=== PATIENT | female | born 1950 | race Caucasian/White ===

== ENCOUNTER 2018-02-04 13:22 | Inpatient (IN) | payer OTHER ==
[2018-02-04] MEDS: ONDANSETRON 4 MG INJ IV (13:38)
[2018-02-04] MEDS: morphine 4 MG/ML VIAL IV (13:38)
[2018-02-04] MEDS: SOD CHLORIDE 0.9% 1,000 ML IV ×3 (13:38→19:55)
[2018-02-04 13:44] LABS: ADD MAN DIFF? NO
[2018-02-04 13:48] LABS: ABNORMAL IP MESSAGE 1; BASOPHIL # 0.1 10^3/ul (0.0-0.1); BASOPHILS % 0.5 % (0.0-2.0); HEMATOCRIT 45.6 % (37.0-47.0); HEMOGLOBIN 15.5 g/dl (12.0-16.0); LYMPHOCYTES % 9.1 % (15.0-51.0); MEAN CORPUSCULAR HEMOGLOBIN 30.2 pg (29.0-33.0); MEAN CORPUSCULAR VOLUME 88.9 fl (82.0-101.0); MEAN PLATELET VOLUME 9.7 fl (7.4-10.4); MONOCYTE # 1.7 10^3/ul (0.3-0.9); MONOCYTES % 7.8 % (0.0-11.0); NEUTROPHIL # 17.8 10^3/ul (1.6-7.5); NEUTROPHILS % 81.8 % (39.0-77.0); PLATELET COUNT 280 10^3/UL (140-415); RED BLOOD COUNT 5.13 10^6/ul (4.20-5.40); RED CELL DISTRIBUTION WIDTH 12.9 % (11.5-14.5)
[2018-02-04 13:48] LABS: WHITE BLOOD COUNT 21.8 10^3/ul (4.8-10.8)
[2018-02-04 13:55] LABS: POSITIVE DIFF @See below
[2018-02-04] MEDS: LIDOCAINE/MYLANTA 40 ML BTL PO (14:01)
[2018-02-04 14:08] LABS: ALANINE AMINOTRANSFERASE 12 IU/L (13-69); ALBUMIN 4.8 g/dl (3.3-4.9); ALBUMIN/GLOBULIN RATIO 1.54; ALKALINE PHOSPHATASE 65 IU/L (42-121); ANION GAP 34 (8-16); BILIRUBIN,INDIRECT 0.6 mg/dl (0-1.1); BILIRUBIN,TOTAL 0.6 mg/dl (0.2-1.3); BLOOD UREA NITROGEN 29 mg/dl (7-20); CALCIUM 10.1 mg/dl (8.4-10.2); CARBON DIOXIDE 16 mmol/L (21-31); CHLORIDE 94 mmol/L (97-110); CREATININE 1.11 mg/dl (0.44-1.00); LIPASE 67 U/L (23-300); POTASSIUM 4.6 mmol/L (3.5-5.1); SODIUM 139 mmol/L (135-144); TOTAL PROTEIN 7.9 g/dl (6.1-8.1)
[2018-02-04 14:12] LABS: GLUCOSE 579 mg/dl (70-220)
[2018-02-04 14:16] LABS: ASPARTATE AMINO TRANSFERASE 38 IU/L (15-46)
[2018-02-04 14:18] LABS: LACTIC ACID 16.6 mmol/L (0.5-2.0)
[2018-02-04 14:19] LABS: TROPONIN-I 0.059 ng/ml (0.000-0.120)
[2018-02-04 15:13] LABS: ADD UMIC YES; UR ASCORBIC ACID NEGATIVE (NEGATIVE); UR BILIRUBIN (Dip) NEGATIVE (NEGATIVE); UR BLOOD (Dip) 1+ mg/dL (NEGATIVE); UR CLARITY CLEAR (CLEAR); UR COLOR STRAW (YELLOW); UR GLUCOSE (Dip) 3+ mg/dL (NEGATIVE); UR KETONES (Dip) 1+ mg/dL (NEGATIVE); UR LEUKOCYTE ESTERASE (Dip) NEGATIVE Leu/ul (NEGATIVE); UR NITRITE (Dip) NEGATIVE (NEGATIVE); UR RBC 0 /HPF (0-5); UR SPECIFIC GRAVITY (Dip) 1.021 (1.003-1.030); UR TOTAL PROTEIN (Dip) NEGATIVE (NEGATIVE); UR UROBILINOGEN (Dip) NEGATIVE (NEGATIVE); UR WBC 0 /HPF (0-5)
[2018-02-04] MEDS ORDERED: SODIUM CHLORIDE 23.4% 77 MEQ, POTASSIUM CHLORIDE 30 MEQ in DEXTROSE 10% 1,000 ML IV ×2 (16:26→17:30)
[2018-02-04] MEDS ORDERED: SODIUM CHLORIDE 23.4% 77 MEQ in DEXTROSE 10% 1,000 ML IV ×2 (16:26→17:30)
[2018-02-04] MEDS ORDERED: POTASSIUM CHLORIDE 40 MEQ in SOD CHLORIDE 0.9% 1,000 ML IV ×2 (16:26→17:30)
[2018-02-04] MEDS ORDERED: SOD CHLORIDE 0.9% 1,000 ML IV ×2 (16:26→17:30)
[2018-02-04] MEDS ORDERED: DEXTROSE 50% 50 ML SYRINGE IV ×4 (16:30→17:30)
[2018-02-04] MEDS: LACTATED RINGER'S 550 ML IV (16:37)
[2018-02-04 17:05] LABS: AADO2 Venous 71.4 mmHg; MODE ROOM AIR; MetHgb Venous 0.3 %; Sample Type Blood venous; Site OTHER; Venous COHb 0.4 %; Venous Fraction OxyHgb 82.9 %; Venous Oxygen Sat 83.5 mmHG (55.0-75.0); Venous Total Hemglobin 15.6 g/dl
[2018-02-04] MEDS: INSULIN REGULAR, HUMAN 100 UNIT in SOD CHLORIDE 0.9% 100 ML IV (17:19)
[2018-02-04] MEDS: ACCU-CHEK XX ×7 (17:30→23:30)
[2018-02-04] MEDS ORDERED: POTASSIUM CHLORIDE 30 MEQ in SOD CHLORIDE 0.9% 1,000 ML IV (17:30)
[2018-02-04] MEDS ORDERED: SODIUM CHLORIDE 23.4% 77 MEQ, POTASSIUM CHLORIDE 40 MEQ in DEXTROSE 10% 1,000 ML IV (17:30)
[2018-02-04] MEDS ORDERED: POTASSIUM CHLORIDE 50 ML IVPB (17:30)
[2018-02-04] MEDS ORDERED: INSULIN REGULAR, HUMAN 100 UNIT in SOD CHLORIDE 0.9% 100 ML IV (17:30)
[2018-02-04 17:31] LABS: HEMOGLOBIN A1C 9.8 % (0-5.9)
[2018-02-04] MEDS: CEFEPIME 2GM/50 ML (PMX) 50 ML IVPB (17:36)
[2018-02-04] MEDS: POTASSIUM CHLORIDE 30 MEQ in SOD CHLORIDE 0.9% 1,000 ML IV (17:38)
[2018-02-04 17:54] LABS: ANION GAP 32 (8-16); BLOOD UREA NITROGEN 27 mg/dl (7-20); CALCIUM 9.7 mg/dl (8.4-10.2); CARBON DIOXIDE 16 mmol/L (21-31); CHLORIDE 95 mmol/L (97-110); CREATININE 1.02 mg/dl (0.44-1.00); MAGNESIUM 1.8 mg/dl (1.7-2.5); PHOSPHORUS 4.5 mg/dl (2.5-4.9); POTASSIUM 4.7 mmol/L (3.5-5.1); SODIUM 138 mmol/L (135-144)
[2018-02-04 17:56] LABS: GLUCOSE 571 mg/dl (70-220)
[2018-02-04] MEDS ORDERED: NACL 0.9% 3 ML SYG IV (18:00)
[2018-02-04] MEDS ORDERED: ACETAMINOPHEN 325 MG TAB PO (18:00)
[2018-02-04] MEDS ORDERED: HYDROCODONE/APAP (5/325) TAB PO (18:00)
[2018-02-04 18:22] LABS: LACTIC ACID 14.8 mmol/L (0.5-2.0)
[2018-02-04] MEDS: SODIUM CHLORIDE 23.4% 77 MEQ, POTASSIUM CHLORIDE 40 MEQ in DEXTROSE 10% 1,000 ML IV (18:30)
[2018-02-04] MEDS: PIPER-TAZO 3.375 GM IV (PMX) 100 ML IVPB (19:09)
[2018-02-04] MEDS: PANTOPRAZOLE 40 MG INJ IV (19:10)
[2018-02-04 20:11] LABS: ANION GAP 27 (8-16); BLOOD UREA NITROGEN 24 mg/dl (7-20); CARBON DIOXIDE 16 mmol/L (21-31); CHLORIDE 104 mmol/L (97-110); GLUCOSE 323 mg/dl (70-220); MAGNESIUM 1.7 mg/dl (1.7-2.5); POTASSIUM 4.8 mmol/L (3.5-5.1); SODIUM 142 mmol/L (135-144)
[2018-02-04 20:23] LABS: LACTIC ACID 14.4 mmol/L (0.5-2.0)
[2018-02-04 20:49] LABS: MODE ROOM AIR; MetHgb Venous 0.4 %; Sample Type Blood venous; Site VENOUS LINE; Venous COHb 0.3 %; Venous Fraction OxyHgb 74.4 %; Venous Oxygen Sat 74.9 mmHG (55.0-75.0)
[2018-02-04] MEDS: ATORVASTATIN 20 MG TAB PO (20:58)
[2018-02-04] MEDS: traZODone 100 MG TAB PO (20:58)
[2018-02-04] MEDS: LABETALOL HCL 20MG INJ IV (20:59)
[2018-02-04] MEDS: METOPROLOL 25 MG TAB PO (21:00)
[2018-02-05] MEDS: ACCU-CHEK XX ×7 (00:30→06:17)
[2018-02-05 00:31] LABS: MODE ROOM AIR; MetHgb Venous 0.2 %; Sample Type Blood venous; Site VENOUS LINE; Venous COHb 0.4 %; Venous Fraction OxyHgb 88.1 %; Venous Oxygen Sat 88.6 mmHG (55.0-75.0); Venous Total Hemglobin 14.6 g/dl
[2018-02-05 00:39] LABS: ANION GAP 15 (8-16); BLOOD UREA NITROGEN 18 mg/dl (7-20); CALCIUM 8.6 mg/dl (8.4-10.2); CARBON DIOXIDE 25 mmol/L (21-31); CHLORIDE 106 mmol/L (97-110); CREATININE 0.77 mg/dl (0.44-1.00); GLUCOSE 289 mg/dl (70-220); MAGNESIUM 1.8 mg/dl (1.7-2.5); PHOSPHORUS 1.1 mg/dl (2.5-4.9); POTASSIUM 4.4 mmol/L (3.5-5.1); SODIUM 142 mmol/L (135-144)
[2018-02-05] MEDS: INSULIN GLARGINE [LANTus] (100 UNITS/ML) SYG SC ×3 (01:30→21:43)
[2018-02-05] MEDS: PIPER-TAZO 3.375 GM IV (PMX) 100 ML IVPB ×4 (02:28→18:12)
[2018-02-05 04:37] LABS: MODE ROOM AIR; MetHgb Venous 0.3 %; Sample Type Blood venous; Site VENOUS LINE; Venous COHb 0.9 %; Venous Fraction OxyHgb 73.2 %; Venous Oxygen Sat 74.1 mmHG (55.0-75.0); Venous Total Hemglobin 14.8 g/dl
[2018-02-05 05:01] LABS: ALANINE AMINOTRANSFERASE 19 IU/L (13-69); ALBUMIN 3.6 g/dl (3.3-4.9); ALKALINE PHOSPHATASE 45 IU/L (42-121); ANION GAP 13 (8-16); ASPARTATE AMINO TRANSFERASE 47 IU/L (15-46); BILIRUBIN,INDIRECT 0.7 mg/dl (0-1.1); BILIRUBIN,TOTAL 0.7 mg/dl (0.2-1.3); BLOOD UREA NITROGEN 15 mg/dl (7-20); CALCIUM 8.4 mg/dl (8.4-10.2); CARBON DIOXIDE 24 mmol/L (21-31); CHLORIDE 108 mmol/L (97-110); CREATININE 0.69 mg/dl (0.44-1.00); GLUCOSE 279 mg/dl (70-220); MAGNESIUM 1.8 mg/dl (1.7-2.5); PHOSPHORUS 1.2 mg/dl (2.5-4.9); POTASSIUM 4.3 mmol/L (3.5-5.1); SODIUM 141 mmol/L (135-144); TOTAL PROTEIN 6.4 g/dl (6.1-8.1)
[2018-02-05 05:45] LABS: THYROID STIMULATING HORMONE 0.286 MIU/L (0.465-4.680)
[2018-02-05] MEDS: PANTOPRAZOLE 40 MG INJ IV ×2 (06:11→18:12)
[2018-02-05 06:23] LABS: WHITE BLOOD COUNT 20.8 10^3/ul (4.8-10.8)
[2018-02-05 06:23] LABS: ABNORMAL IP MESSAGE 1; ADD MAN DIFF? NO; BASOPHIL # 0.1 10^3/ul (0.0-0.1); BASOPHILS % 0.2 % (0.0-2.0); HEMATOCRIT 43.1 % (37.0-47.0); HEMOGLOBIN 14.2 g/dl (12.0-16.0); LYMPHOCYTES # 2.3 10^3/ul (0.8-2.9); LYMPHOCYTES % 11.1 % (15.0-51.0); MEAN CORPUSCULAR HEMOGLOBIN 29.9 pg (29.0-33.0); MEAN CORPUSCULAR HGB CONC 32.9 g/dl (32.0-37.0); MEAN CORPUSCULAR VOLUME 90.7 fl (82.0-101.0); MEAN PLATELET VOLUME 9.7 fl (7.4-10.4); MONOCYTES % 9.7 % (0.0-11.0); NEUTROPHIL # 16.3 10^3/ul (1.6-7.5); NEUTROPHILS % 78.3 % (39.0-77.0); PLATELET COUNT 222 10^3/UL (140-415); RED BLOOD COUNT 4.75 10^6/ul (4.20-5.40); RED CELL DISTRIBUTION WIDTH 13.4 % (11.5-14.5)
[2018-02-05 06:35] LABS: POSITIVE DIFF @See below
[2018-02-05] MEDS: ONDANSETRON 4 MG INJ IV ×3 (06:50→21:26)
[2018-02-05 07:57] LABS: HEMOGLOBIN A1C 10.1 % (0-5.9)
[2018-02-05 08:50] LABS: MODE NASAL CANNULA; MetHgb Venous 0.2 %; Sample Type Blood venous; Site VENOUS LINE; Venous COHb 0.4 %; Venous Fraction OxyHgb 85.4 %; Venous Oxygen Sat 85.9 mmHG (55.0-75.0); Venous Total Hemglobin 14.1 g/dl
[2018-02-05 09:44] LABS: ANION GAP 14 (8-16); BLOOD UREA NITROGEN 11 mg/dl (7-20); CALCIUM 8.4 mg/dl (8.4-10.2); CARBON DIOXIDE 24 mmol/L (21-31); CHLORIDE 105 mmol/L (97-110); CREATININE 0.64 mg/dl (0.44-1.00); GLUCOSE 224 mg/dl (70-220); MAGNESIUM 1.7 mg/dl (1.7-2.5); PHOSPHORUS 1.5 mg/dl (2.5-4.9); POTASSIUM 4.1 mmol/L (3.5-5.1); SODIUM 139 mmol/L (135-144)
[2018-02-05] MEDS ORDERED: GLUCOSE GEL 15 GRAM TUBE PO ×2 (10:00)
[2018-02-05] MEDS ORDERED: GLUCOSE GEL 15 GRAM TUBE BUCCAL (10:00)
[2018-02-05] MEDS ORDERED: GLUCAGON 1 MG INJ IM (10:00)
[2018-02-05] MEDS ORDERED: DEXTROSE 50% 50 ML SYRINGE IV ×2 (10:00)
[2018-02-05] MEDS: morphine 2 MG INJ IV ×3 (10:53→21:27)
[2018-02-05] MEDS: LISINOPRIL 20 MG TAB PO (11:18)
[2018-02-05] MEDS: LEVOTHYROXINE 100 MCG TAB PO (11:19)
[2018-02-05] MEDS: VENLAFAXINE (XR) 75 MG CAP PO (11:27)
[2018-02-05 11:47] LABS: LACTIC ACID 4.5 mmol/L (0.5-2.0)
[2018-02-05] MEDS: SOD CHLORIDE 0.45% 1,000 ML IV ×3 (12:21→22:47)
[2018-02-05] MEDS: METOPROLOL 25 MG TAB PO ×2 (12:26→21:28)
[2018-02-05] MEDS: LABETALOL HCL 20MG INJ IV ×2 (12:43→23:51)
[2018-02-05] MEDS: INSULIN ASPART [NOVOLOG] 3 ML PEN SC ×4 (12:47→21:43)
[2018-02-05] MEDS: BISACODYL (EC) 5 MG TAB PO (16:05)
[2018-02-05] MEDS: MAGNESIUM CITRATE 300 ML BTL PO ×3 (18:12→22:21)
[2018-02-05] MEDS ORDERED: INSULIN GLARGINE [LANTus] (100 UNITS/ML) SYG SC (20:00)
[2018-02-05] MEDS: POLYETHYLENE GLYCOL 3350 119 GM POWDER PO (21:26)
[2018-02-05] MEDS: ATORVASTATIN 20 MG TAB PO (21:27)
[2018-02-05] MEDS: traZODone 100 MG TAB PO (21:27)
[2018-02-06] MEDS: PIPER-TAZO 3.375 GM IV (PMX) 100 ML IVPB ×4 (00:40→17:57)
[2018-02-06] MEDS: INSULIN ASPART [NOVOLOG] 3 ML PEN SC ×6 (00:56→21:49)
[2018-02-06] MEDS: ACCU-CHEK XX (02:01)
[2018-02-06] MEDS: LABETALOL HCL 20MG INJ IV (03:59)
[2018-02-06] MEDS: PANTOPRAZOLE 40 MG INJ IV ×2 (05:42→17:57)
[2018-02-06] MEDS: ONDANSETRON 4 MG INJ IV (05:42)
[2018-02-06] MEDS: SOD CHLORIDE 0.45% 1,000 ML IV ×3 (05:42→18:12)
[2018-02-06] MEDS: POLYETHYLENE GLYCOL 3350 119 GM POWDER PO (06:38)
[2018-02-06 06:41] LABS: ADD MAN DIFF? NO
[2018-02-06 06:55] LABS: WHITE BLOOD COUNT 17.3 10^3/ul (4.8-10.8)
[2018-02-06 06:55] LABS: BASOPHILS % 0.2 % (0.0-2.0); HEMATOCRIT 42.9 % (37.0-47.0); HEMOGLOBIN 14.4 g/dl (12.0-16.0); LYMPHOCYTES # 2.6 10^3/ul (0.8-2.9); LYMPHOCYTES % 14.9 % (15.0-51.0); MEAN CORPUSCULAR HEMOGLOBIN 30.3 pg (29.0-33.0); MEAN CORPUSCULAR HGB CONC 33.6 g/dl (32.0-37.0); MEAN CORPUSCULAR VOLUME 90.3 fl (82.0-101.0); MONOCYTE # 1.4 10^3/ul (0.3-0.9); MONOCYTES % 7.8 % (0.0-11.0); NEUTROPHIL # 13.2 10^3/ul (1.6-7.5); NEUTROPHILS % 76.5 % (39.0-77.0); PLATELET COUNT 214 10^3/UL (140-415); RED BLOOD COUNT 4.75 10^6/ul (4.20-5.40); RED CELL DISTRIBUTION WIDTH 12.9 % (11.5-14.5)
[2018-02-06 07:18] LABS: ANION GAP 14 (8-16); BLOOD UREA NITROGEN 9 mg/dl (7-20); CALCIUM 7.9 mg/dl (8.4-10.2); CARBON DIOXIDE 27 mmol/L (21-31); CHLORIDE 98 mmol/L (97-110); GLUCOSE 256 mg/dl (70-220); MAGNESIUM 1.9 mg/dl (1.7-2.5); PHOSPHORUS 2.6 mg/dl (2.5-4.9); POTASSIUM 4.3 mmol/L (3.5-5.1); SODIUM 135 mmol/L (135-144)
[2018-02-06] MEDS: LEVOTHYROXINE 100 MCG TAB PO (07:40)
[2018-02-06] MEDS: morphine 2 MG INJ IV ×3 (07:40→21:20)
[2018-02-06] MEDS: BISACODYL (EC) 5 MG TAB PO (08:27)
[2018-02-06] MEDS: VENLAFAXINE (XR) 75 MG CAP PO (08:28)
[2018-02-06] MEDS: METOPROLOL 25 MG TAB PO ×2 (08:29→21:21)
[2018-02-06] MEDS: LISINOPRIL 20 MG TAB PO (08:29)
[2018-02-06] MEDS: LORAZEPAM 2 MG INJ IV ×2 (11:34→21:18)
[2018-02-06] MEDS: traZODone 100 MG TAB PO (21:18)
[2018-02-06] MEDS: ATORVASTATIN 20 MG TAB PO (21:18)
[2018-02-06] MEDS: INSULIN GLARGINE [LANTus] (100 UNITS/ML) SYG SC (21:49)
[2018-02-07] MEDS: PIPER-TAZO 3.375 GM IV (PMX) 100 ML IVPB ×2 (01:34→06:03)
[2018-02-07] MEDS: METHADONE 10 MG TAB PO ×2 (01:35→10:56)
[2018-02-07] MEDS: INSULIN ASPART [NOVOLOG] 3 ML PEN SC ×3 (01:50→08:07)
[2018-02-07] MEDS: ACCU-CHEK XX (02:00)
[2018-02-07] MEDS: SOD CHLORIDE 0.45% 1,000 ML IV ×2 (03:32→08:10)
[2018-02-07] MEDS: LORAZEPAM 2 MG INJ IV (05:38)
[2018-02-07] MEDS: PANTOPRAZOLE 40 MG INJ IV (06:03)
[2018-02-07] MEDS: NICOTINE (21 MG/24 HR) PATCH TRANSDERM (06:04)
[2018-02-07] MEDS: LEVOTHYROXINE 100 MCG TAB PO (06:10)
[2018-02-07 06:55] LABS: ADD MAN DIFF? NO
[2018-02-07 06:58] LABS: WHITE BLOOD COUNT 11.8 10^3/ul (4.8-10.8)
[2018-02-07 06:58] LABS: BASOPHILS % 0.3 % (0.0-2.0); EOSINOPHILS % 0.1 % (0.0-7.0); LYMPHOCYTES # 3.3 10^3/ul (0.8-2.9); LYMPHOCYTES % 28.2 % (15.0-51.0); MEAN CORPUSCULAR HEMOGLOBIN 30.6 pg (29.0-33.0); MEAN CORPUSCULAR HGB CONC 34.2 g/dl (32.0-37.0); MEAN CORPUSCULAR VOLUME 89.4 fl (82.0-101.0); MEAN PLATELET VOLUME 9.8 fl (7.4-10.4); MONOCYTES % 8.7 % (0.0-11.0); NEUTROPHIL # 7.3 10^3/ul (1.6-7.5); NEUTROPHILS % 62.2 % (39.0-77.0); PLATELET COUNT 211 10^3/UL (140-415); RED BLOOD COUNT 4.25 10^6/ul (4.20-5.40); RED CELL DISTRIBUTION WIDTH 12.4 % (11.5-14.5)
[2018-02-07 07:33] LABS: ANION GAP 15 (8-16); BLOOD UREA NITROGEN 11 mg/dl (7-20); CALCIUM 8.1 mg/dl (8.4-10.2); CARBON DIOXIDE 27 mmol/L (21-31); CHLORIDE 96 mmol/L (97-110); CREATININE 0.65 mg/dl (0.44-1.00); GLUCOSE 163 mg/dl (70-220); POTASSIUM 3.7 mmol/L (3.5-5.1); SODIUM 134 mmol/L (135-144)
[2018-02-07] MEDS: VENLAFAXINE (XR) 75 MG CAP PO (08:03)
[2018-02-07] MEDS: LISINOPRIL 20 MG TAB PO (08:03)
[2018-02-07] MEDS: METOPROLOL 25 MG TAB PO (08:03)
== END 2018-02-07 11:13 | disposition left against medical advice (07) | DRG 871 ==
LOC: E/R 13:22 → TEL 17:28
DX: A41.9 Sepsis, unspecified organism (principal); E11.10 Type 2 diabetes mellitus with ketoacidosis without coma; A09 Infectious gastroenteritis and colitis, unspecified; F11.20 Opioid dependence, uncomplicated; I16.0 Hypertensive urgency; R11.2 Nausea with vomiting, unspecified; K20.9 Esophagitis, unspecified; F39 Unspecified mood [affective] disorder; E03.9 Hypothyroidism, unspecified; I10 Essential (primary) hypertension; F17.210 Nicotine dependence, cigarettes, uncomplicated; E78.5 Hyperlipidemia, unspecified; G89.29 Other chronic pain; Z79.4 Long term (current) use of insulin; Z79.84 Long term (current) use of oral hypoglycemic drugs
CPT/HCPCS: 36415; 74176; 80048; 80053; 80076; 81001; 82803; 82962; 83036; 83605; 83690; 83735; 84100; 84443; 84484; 85025; 87040; 87086; 96374; 96375; 99291-25

== ENCOUNTER 2018-02-12 10:49 | Emergency (ER) | payer OTHER ==
[2018-02-12] MEDS: ACETAMINOPHEN 500 MG TAB PO (11:46)
[2018-02-12 12:27] LABS: ADD MAN DIFF? NO
[2018-02-12] MEDS: SOD CHLORIDE 0.9% 540 ML IV (12:29)
[2018-02-12 12:33] LABS: BASOPHIL # 0.1 10^3/ul (0.0-0.1); BASOPHILS % 0.5 % (0.0-2.0); EOSINOPHILS # 0.1 10^3/ul (0.0-0.5); EOSINOPHILS % 0.8 % (0.0-7.0); HEMATOCRIT 38.5 % (37.0-47.0); HEMOGLOBIN 13.1 g/dl (12.0-16.0); LYMPHOCYTES # 2.7 10^3/ul (0.8-2.9); LYMPHOCYTES % 22.7 % (15.0-51.0); MEAN CORPUSCULAR HEMOGLOBIN 30.2 pg (29.0-33.0); MEAN CORPUSCULAR VOLUME 88.7 fl (82.0-101.0); MEAN PLATELET VOLUME 9.3 fl (7.4-10.4); MONOCYTE # 1.4 10^3/ul (0.3-0.9); MONOCYTES % 11.4 % (0.0-11.0); NEUTROPHIL # 7.7 10^3/ul (1.6-7.5); NEUTROPHILS % 63.9 % (39.0-77.0); PLATELET COUNT 257 10^3/UL (140-415); RED BLOOD COUNT 4.34 10^6/ul (4.20-5.40); RED CELL DISTRIBUTION WIDTH 12.8 % (11.5-14.5)
[2018-02-12 13:01] LABS: ANION GAP 16 (8-16); BLOOD UREA NITROGEN 19 mg/dl (7-20); CALCIUM 9.2 mg/dl (8.4-10.2); CARBON DIOXIDE 28 mmol/L (21-31); CHLORIDE 88 mmol/L (97-110); CREATININE 0.88 mg/dl (0.44-1.00); MAGNESIUM 1.7 mg/dl (1.7-2.5); PHOSPHORUS 3.7 mg/dl (2.5-4.9); POTASSIUM 4.2 mmol/L (3.5-5.1); SODIUM 128 mmol/L (135-144)
[2018-02-12 13:05] LABS: GLUCOSE 568 mg/dl (70-220)
[2018-02-12 13:09] LABS: MODE ROOM AIR; MetHgb Venous 0.1 %; Sample Type Blood venous; Site VENOUS LINE; Venous COHb 2.5 %; Venous Fraction OxyHgb 86.7 %; Venous Total Hemglobin 9.2 g/dl
[2018-02-12] MEDS: INSULIN LISPRO 100 UNIT/ML VIAL SC (13:26)
== END 2018-02-12 14:12 | disposition home or self-care (01) ==
LOC: FTE 10:49
DX: S60.221A Contusion of right hand, initial encounter (principal); S09.93XA Unspecified injury of face, initial encounter; S60.211A Contusion of right wrist, initial encounter; I10 Essential (primary) hypertension; E11.65 Type 2 diabetes mellitus with hyperglycemia; F17.210 Nicotine dependence, cigarettes, uncomplicated; W01.0XXA Fall on same level from slipping, tripping and stumbling without subsequent striking against object, initial encounter; Y92.89 Other specified places as the place of occurrence of the external cause; Z79.4 Long term (current) use of insulin
CPT/HCPCS: 36415; 70450; 70486; 73110-RT; 73130-RT; 80048; 82803; 82962; 83735; 84100; 85025; 96360; 96361; 96372; 99285-25

== ENCOUNTER 2018-06-08 22:46 | Inpatient (IN) | payer OTHER, MEDICAID ==
[2018-06-08] MEDS: SOD CHLORIDE 0.9% 660 ML IV
[2018-06-08] MEDS: ONDANSETRON 4 MG INJ IV (23:14)
[2018-06-08] MEDS: hydrALAzine 20 MG INJ IV (23:15)
[2018-06-08 23:17] LABS: ADD MAN DIFF? NO
[2018-06-08 23:22] LABS: HEMATOCRIT 44.3 % (37.0-47.0); HEMOGLOBIN 15.3 g/dl (12.0-16.0); MEAN CORPUSCULAR HEMOGLOBIN 30.2 pg (29.0-33.0); MEAN CORPUSCULAR HGB CONC 34.5 g/dl (32.0-37.0); MEAN CORPUSCULAR VOLUME 87.5 fl (82.0-101.0); RED BLOOD COUNT 5.06 10^6/ul (4.20-5.40); RED CELL DISTRIBUTION WIDTH 12.1 % (11.5-14.5)
[2018-06-08 23:22] LABS: WHITE BLOOD COUNT 14.8 10^3/ul (4.8-10.8)
[2018-06-08 23:23] LABS: BASOPHIL # 0.1 10^3/ul (0.0-0.1); BASOPHILS % 0.7 % (0.0-2.0); EOSINOPHILS % 0.1 % (0.0-7.0); LYMPHOCYTES # 2.4 10^3/ul (0.8-2.9); MEAN PLATELET VOLUME 9.3 fl (7.4-10.4); MONOCYTE # 1.4 10^3/ul (0.3-0.9); MONOCYTES % 9.6 % (0.0-11.0); NEUTROPHIL # 10.8 10^3/ul (1.6-7.5); NEUTROPHILS % 72.6 % (39.0-77.0); PLATELET COUNT 424 10^3/UL (140-415)
[2018-06-08 23:38] LABS: ANION GAP 30 (5-13); BLOOD UREA NITROGEN 13 mg/dl (7-20); CALCIUM 10.3 mg/dl (8.4-10.2); CARBON DIOXIDE 14 mmol/L (21-31); CHLORIDE 89 mmol/L (97-110); CREATININE 0.66 mg/dl (0.44-1.00); Estimated GFR > 60 mL/min (>60); SODIUM 133 mmol/L (135-144)
[2018-06-08 23:42] LABS: INR 0.83; PARTIAL THROMBOPLASTIN TIME 22.1 Sec (23.0-35.0); PROTIME 11.5 Sec (11.9-14.9); PT RATIO 0.9
[2018-06-08 23:43] LABS: POTASSIUM 4.1 mmol/L (3.5-5.1)
[2018-06-08 23:44] LABS: GLUCOSE 541 mg/dl (70-220)
[2018-06-08] MEDS ORDERED: DEXTROSE 10 %/0.45 % NACL 1,000 ML IV (23:47)
[2018-06-08] MEDS ORDERED: SOD CHLORIDE 0.9% 1,000 ML IV (23:47)
[2018-06-08] MEDS ORDERED: NS + KCL 40 MEQ 1,000 ML IV (23:47)
[2018-06-08] MEDS ORDERED: D10/0.45% NACL + KCL 40 MEQ 1,000 ML IV (23:47)
[2018-06-09 00:16] LABS: MODE ROOM AIR; MetHgb Venous 0.4 %; Sample Type Blood venous; Site VENOUS LINE; Venous COHb 1.4 %; Venous Fraction OxyHgb 88.7 %; Venous Oxygen Sat 90.3 mmHG (55.0-75.0); Venous Total Hemglobin 16.1 g/dl
[2018-06-09 00:56] LABS: MAGNESIUM 2.1 mg/dl (1.7-2.5)
[2018-06-09 00:56] LABS: PHOSPHORUS 4.4 mg/dl (2.5-4.9)
[2018-06-09] MEDS: SOD CHLORIDE 0.9% 660 ML IV (01:02)
[2018-06-09] MEDS: LACTATED RINGER'S 660 ML IV (01:03)
[2018-06-09 01:42] LABS: ADD UMIC NO; UR ASCORBIC ACID NEGATIVE (NEGATIVE); UR BILIRUBIN (Dip) NEGATIVE (NEGATIVE); UR BLOOD (Dip) NEGATIVE (NEGATIVE); UR CLARITY CLEAR (CLEAR); UR COLOR STRAW (YELLOW); UR GLUCOSE (Dip) 3+ mg/dL (NEGATIVE); UR KETONES (Dip) 2+ mg/dL (NEGATIVE); UR LEUKOCYTE ESTERASE (Dip) NEGATIVE Leu/ul (NEGATIVE); UR NITRITE (Dip) NEGATIVE (NEGATIVE); UR SPECIFIC GRAVITY (Dip) 1.021 (1.003-1.030); UR TOTAL PROTEIN (Dip) NEGATIVE (NEGATIVE); UR UROBILINOGEN (Dip) NEGATIVE (NEGATIVE)
[2018-06-09] MEDS: ONDANSETRON 4 MG INJ IV (02:02)
[2018-06-09 02:18] LABS: HEMOGLOBIN A1C 13.2 % (0-5.9)
[2018-06-09] MEDS: METOCLOPRAMIDE 10 MG INJ IV (02:49)
[2018-06-09] MEDS: morphine 2 MG INJ IV (02:50)
[2018-06-09] MEDS ORDERED: ACETAMINOPHEN 650MG/20.3ML CUP PO (03:00)
[2018-06-09] MEDS ORDERED: ONDANSETRON 4 MG INJ IV (03:00)
[2018-06-09 03:11] LABS: MODE ROOM AIR; MetHgb Venous 0.4 %; Sample Type Blood venous; Site VENOUS LINE; Venous COHb 0.8 %; Venous Fraction OxyHgb 92.6 %; Venous Oxygen Sat 93.7 mmHG (55.0-75.0)
[2018-06-09 03:35] LABS: ETHANOL < 10.0 mg/dl (0-0)
[2018-06-09 03:38] LABS: AMPHETAMINE/METHAMPHETAMINE Negative (NEGATIVE); BARBITURATES Negative (NEGATIVE); BENZODIAZEPINES Negative (NEGATIVE); CANNABINOIDS Negative (NEGATIVE); COCAINE Negative (NEGATIVE); OPIATES Negative (NEGATIVE)
[2018-06-09] MEDS: NS + KCL 30 MEQ 1,000 ML IV ×3 (03:42→14:56)
[2018-06-09] MEDS: INSULIN REGULAR, HUMAN 100 UNIT in SOD CHLORIDE 0.9% 100 ML IV ×2 (03:44→19:06)
[2018-06-09] MEDS: SOD CHLORIDE 0.9% 1,000 ML IV ×2 (03:47→04:01)
[2018-06-09] MEDS: METHADONE 10 MG TAB PO ×2 (04:00→21:32)
[2018-06-09] MEDS: IPRATROPIUM (NEB) 0.5 MG/2.5 ML AMP NEB ×2 (04:31→09:21)
[2018-06-09] MEDS: ALBUTEROL 0.083% (NEB) 2.5 MG/3 ML AMP NEB ×3 (04:31→09:21)
[2018-06-09] MEDS: LORAZEPAM 4 MG/ML VIAL IV (05:00)
[2018-06-09] MEDS ORDERED: LORAZEPAM 2 MG INJ IV (05:00)
[2018-06-09] MEDS: PANTOPRAZOLE 40 MG INJ IV (05:02)
[2018-06-09] MEDS: LABETALOL HCL 20MG INJ IV (05:05)
[2018-06-09 05:10] LABS: MODE NASAL CANNULA; MetHgb Venous 0.5 %; Sample Type Blood venous; Site VENOUS LINE; Venous COHb 0.5 %; Venous Fraction OxyHgb 73.2 %; Venous Oxygen Sat 73.9 mmHG (55.0-75.0); Venous Total Hemglobin 16.2 g/dl
[2018-06-09] MEDS: D10/0.45% NACL + KCL 30 MEQ 1,000 ML IV ×2 (06:29→14:54)
[2018-06-09 07:10] LABS: PHOSPHORUS 2.7 mg/dl (2.5-4.9)
[2018-06-09 07:10] LABS: ANION GAP 25 (5-13); BLOOD UREA NITROGEN 13 mg/dl (7-20); CALCIUM 8.5 mg/dl (8.4-10.2); CARBON DIOXIDE 13 mmol/L (21-31); CHLORIDE 105 mmol/L (97-110); Estimated GFR > 60 mL/min (>60); GLUCOSE 379 mg/dl (70-220); MAGNESIUM 1.8 mg/dl (1.7-2.5); POTASSIUM 3.9 mmol/L (3.5-5.1); SODIUM 143 mmol/L (135-144)
[2018-06-09] MEDS ORDERED: VANCOMYCIN IV PER PHARMACY XX (10:00)
[2018-06-09 10:52] LABS: ALANINE AMINOTRANSFERASE 7 IU/L (13-69); ALBUMIN 3.6 g/dl (3.3-4.9); ALKALINE PHOSPHATASE 73 IU/L (42-121); ASPARTATE AMINO TRANSFERASE 15 IU/L (15-46)
[2018-06-09 10:54] LABS: ANION GAP 13 (5-13); BLOOD UREA NITROGEN 12 mg/dl (7-20); CALCIUM 8.7 mg/dl (8.4-10.2); CARBON DIOXIDE 22 mmol/L (21-31); CHLORIDE 109 mmol/L (97-110); Estimated GFR > 60 mL/min (>60); GLUCOSE 297 mg/dl (70-220); PHOSPHORUS 1.1 mg/dl (2.5-4.9); POTASSIUM 4.4 mmol/L (3.5-5.1); SODIUM 144 mmol/L (135-144)
[2018-06-09] MEDS ORDERED: IPRATROPIUM (NEB) 0.5 MG/2.5 ML AMP NEB (11:00)
[2018-06-09] MEDS ORDERED: ALBUTEROL 0.083% (NEB) 2.5 MG/3 ML AMP NEB (11:00)
[2018-06-09] MEDS: LEVOFLOXACIN 500MG/D5W (PMX) 100 ML IVPB (11:13)
[2018-06-09] MEDS: METOPROLOL 25 MG TAB PO ×2 (11:13→21:34)
[2018-06-09] MEDS: LISINOPRIL 20 MG TAB PO (11:14)
[2018-06-09] MEDS: VANCOMYCIN 1 GM 250 ML IVPB (12:02)
[2018-06-09 14:20] LABS: HAAIG REFLEX REFLEX FILED
[2018-06-09 14:21] LABS: MODE ROOM AIR; MetHgb Venous 0.4 %; Sample Type Blood venous; Site VENOUS LINE; Venous COHb 0.3 %; Venous Fraction OxyHgb 84.9 %; Venous Oxygen Sat 85.5 mmHG (55.0-75.0); Venous Total Hemglobin 13.6 g/dl
[2018-06-09 14:43] LABS: ANION GAP 9 (5-13); BLOOD UREA NITROGEN 10 mg/dl (7-20); CALCIUM 8.3 mg/dl (8.4-10.2); CARBON DIOXIDE 23 mmol/L (21-31); CHLORIDE 110 mmol/L (97-110); Estimated GFR > 60 mL/min (>60); GLUCOSE 191 mg/dl (70-220); MAGNESIUM 1.8 mg/dl (1.7-2.5); PHOSPHORUS 1.2 mg/dl (2.5-4.9); POTASSIUM 3.9 mmol/L (3.5-5.1); SODIUM 142 mmol/L (135-144)
[2018-06-09 15:13] LABS: HEPATITIS B SURFACE ANTIGEN NEGATIVE (NEGATIVE)
[2018-06-09 15:22] LABS: HIV 1&2 ANTIBODY NEGATIVE (NEGATIVE)
[2018-06-09 15:31] LABS: HEPATITIS B CORE ANTIBODY NEGATIVE (NEGATIVE)
[2018-06-09 15:33] LABS: AADO2 Arterial 22.7 mmHg (7.0-24.0); Allen Test ACCEPTAB; Arterial Base Excess -2.3 mmol/L (-3.0-3); Arterial COHb 0.1 % (0.0-3.0); Arterial Fraction of Oxyhgb 95.7 % (93.0-99.0); Arterial MetHb 0.2 % (0.0-1.5); Arterial pCO2 36.1 mmhg (35-45); MODE ROOM AIR; Site Right Brachial
[2018-06-09 15:41] LABS: HEPATITIS C VIRAL ANTIBODY REACTIVE (NEGATIVE)
[2018-06-09] MEDS: INSULIN GLARGINE [LANTus] (100 UNITS/ML) SYG SC (17:03)
[2018-06-09 20:09] LABS: MODE ROOM AIR; MetHgb Venous 0.2 %; Sample Type Blood venous; Site VENOUS LINE; Venous COHb 0.4 %; Venous Fraction OxyHgb 70.5 %; Venous Oxygen Sat 70.9 mmHG (55.0-75.0); Venous Total Hemglobin 14.5 g/dl
[2018-06-09 20:26] LABS: ANION GAP 10 (5-13); BLOOD UREA NITROGEN 9 mg/dl (7-20); CALCIUM 8.5 mg/dl (8.4-10.2); CARBON DIOXIDE 20 mmol/L (21-31); CHLORIDE 106 mmol/L (97-110); CREATININE 0.47 mg/dl (0.44-1.00); Estimated GFR > 60 mL/min (>60); GLUCOSE 247 mg/dl (70-220); MAGNESIUM 1.8 mg/dl (1.7-2.5); PHOSPHORUS 1.5 mg/dl (2.5-4.9); POTASSIUM 4.1 mmol/L (3.5-5.1); SODIUM 136 mmol/L (135-144)
[2018-06-09] MEDS: ATORVASTATIN 20 MG TAB PO (21:32)
[2018-06-09] MEDS ORDERED: GLUCAGON 1 MG INJ IM (23:00)
[2018-06-09] MEDS ORDERED: DEXTROSE 50% 50 ML SYRINGE IV ×4 (23:00)
[2018-06-09] MEDS ORDERED: GLUCOSE GEL 15 GRAM TUBE BUCCAL (23:00)
[2018-06-09] MEDS ORDERED: GLUCOSE GEL 15 GRAM TUBE PO ×2 (23:00)
[2018-06-09] MEDS: INSULIN ASPART [NOVOLOG] 3 ML PEN SC (23:18)
[2018-06-10] MEDS: VANCOMYCIN 750 MG (PMX) 250 ML IVPB ×2 (00:25→13:37)
[2018-06-10 01:07] LABS: ANION GAP 11 (5-13); BLOOD UREA NITROGEN 7 mg/dl (7-20); CALCIUM 8.5 mg/dl (8.4-10.2); CARBON DIOXIDE 23 mmol/L (21-31); CHLORIDE 103 mmol/L (97-110); CREATININE 0.43 mg/dl (0.44-1.00); Estimated GFR > 60 mL/min (>60); GLUCOSE 212 mg/dl (70-220); MAGNESIUM 1.8 mg/dl (1.7-2.5); PHOSPHORUS 1.7 mg/dl (2.5-4.9); POTASSIUM 3.9 mmol/L (3.5-5.1); SODIUM 137 mmol/L (135-144)
[2018-06-10] MEDS: ACCU-CHEK XX (02:00)
[2018-06-10 05:15] LABS: ADD MAN DIFF? NO
[2018-06-10 05:17] LABS: BASOPHIL # 0.1 10^3/ul (0.0-0.1); BASOPHILS % 0.4 % (0.0-2.0); EOSINOPHILS % 0.3 % (0.0-7.0); HEMATOCRIT 43.9 % (37.0-47.0); HEMOGLOBIN 14.7 g/dl (12.0-16.0); LYMPHOCYTES # 2.1 10^3/ul (0.8-2.9); LYMPHOCYTES % 16.1 % (15.0-51.0); MEAN CORPUSCULAR HEMOGLOBIN 29.9 pg (29.0-33.0); MEAN CORPUSCULAR HGB CONC 33.5 g/dl (32.0-37.0); MEAN CORPUSCULAR VOLUME 89.4 fl (82.0-101.0); MEAN PLATELET VOLUME 9.1 fl (7.4-10.4); MONOCYTE # 1.4 10^3/ul (0.3-0.9); MONOCYTES % 10.5 % (0.0-11.0); NEUTROPHIL # 9.3 10^3/ul (1.6-7.5); NEUTROPHILS % 71.5 % (39.0-77.0); PLATELET COUNT 366 10^3/UL (140-415); RED BLOOD COUNT 4.91 10^6/ul (4.20-5.40); RED CELL DISTRIBUTION WIDTH 12.4 % (11.5-14.5)
[2018-06-10 05:41] LABS: ANION GAP 12 (5-13); BLOOD UREA NITROGEN 7 mg/dl (7-20); CALCIUM 9.2 mg/dl (8.4-10.2); CARBON DIOXIDE 24 mmol/L (21-31); CHLORIDE 102 mmol/L (97-110); CREATININE 0.51 mg/dl (0.44-1.00); Estimated GFR > 60 mL/min (>60); GLUCOSE 276 mg/dl (70-220); MAGNESIUM 1.9 mg/dl (1.7-2.5); PHOSPHORUS 1.9 mg/dl (2.5-4.9); SODIUM 138 mmol/L (135-144)
[2018-06-10] MEDS: PANTOPRAZOLE 40 MG INJ IV (06:06)
[2018-06-10] MEDS: LEVOTHYROXINE 100 MCG TAB PO (06:21)
[2018-06-10] MEDS: METHADONE 10 MG TAB PO ×2 (08:37→20:16)
[2018-06-10] MEDS: LISINOPRIL 20 MG TAB PO (08:37)
[2018-06-10] MEDS: METOPROLOL 25 MG TAB PO ×2 (08:37→20:16)
[2018-06-10] MEDS: INSULIN GLARGINE [LANTus] (100 UNITS/ML) SYG SC (08:53)
[2018-06-10] MEDS: LEVOFLOXACIN 500MG/D5W (PMX) 100 ML IVPB (11:53)
[2018-06-10] MEDS: INSULIN ASPART [NOVOLOG] 3 ML PEN SC ×4 (12:27→20:39)
[2018-06-10] MEDS: ATORVASTATIN 20 MG TAB PO (20:15)
[2018-06-10] MEDS: ZOLPIDEM 5 MG TAB PO (20:38)
[2018-06-10] MEDS ORDERED: ZOLPIDEM 5 MG TAB PO (21:00)
[2018-06-11 00:01] LABS: VANCOMYCIN,TROUGH 8.2 ug/ml (10.0-20.0)
[2018-06-11] MEDS: VANCOMYCIN 750 MG (PMX) 250 ML IVPB (00:58)
[2018-06-11 05:32] LABS: WHITE BLOOD COUNT 10.4 10^3/ul (4.8-10.8)
[2018-06-11 05:32] LABS: ABNORMAL IP MESSAGE 1; HEMATOCRIT 35.3 % (37.0-47.0); HEMOGLOBIN 12.1 g/dl (12.0-16.0); MEAN CORPUSCULAR HGB CONC 34.3 g/dl (32.0-37.0); MEAN CORPUSCULAR VOLUME 87.6 fl (82.0-101.0); MEAN PLATELET VOLUME 9.1 fl (7.4-10.4); PLATELET COUNT 309 10^3/UL (140-415); RED BLOOD COUNT 4.03 10^6/ul (4.20-5.40); RED CELL DISTRIBUTION WIDTH 12.1 % (11.5-14.5)
[2018-06-11 05:35] LABS: POSITIVE DIFF @See below
[2018-06-11 05:42] LABS: PHOSPHORUS 2.1 mg/dl (2.5-4.9)
[2018-06-11 05:42] LABS: MAGNESIUM 1.6 mg/dl (1.7-2.5)
[2018-06-11 05:45] LABS: ANION GAP 10 (5-13); BLOOD UREA NITROGEN 11 mg/dl (7-20); CALCIUM 8.4 mg/dl (8.4-10.2); CARBON DIOXIDE 28 mmol/L (21-31); CHLORIDE 97 mmol/L (97-110); CREATININE 0.41 mg/dl (0.44-1.00); Estimated GFR > 60 mL/min (>60); GLUCOSE 240 mg/dl (70-220); POTASSIUM 3.5 mmol/L (3.5-5.1); SODIUM 135 mmol/L (135-144)
[2018-06-11] MEDS: PANTOPRAZOLE (EC) 40 MG TAB PO (05:45)
[2018-06-11] MEDS: LEVOTHYROXINE 100 MCG TAB PO (05:45)
[2018-06-11 05:58] LABS: FREE T4 (FREE THYROXINE) 1.26 ng/dl (0.78-2.44)
[2018-06-11 06:10] LABS: FREE T3 2.65 pg/ml (2.77-5.27)
[2018-06-11 06:24] LABS: ADD MAN DIFF? NO; SEGMENTED NEUTROPHILS (M) % 60 % (39-77)
[2018-06-11 06:25] LABS: BASOPHILS % (M) 0.4 % (0.0-2.0); EOSINOPHILS % (M) 1 % (0.0-7.0); LYMPHOCYTES % (M) 23 % (15-51); MONOCYTES % (M) 15 % (0-11)
[2018-06-11 06:26] LABS: LYMPHOCYTES #M 2.4 10^3/ul (0.8-2.9); MONOCYTE #M 1.6 10^3/ul (0.3-0.9); SEG NEUT #M 6.2 10^3/ul (1.7-7.5)
[2018-06-11] MEDS: METOPROLOL 25 MG TAB PO ×2 (09:31→20:52)
[2018-06-11] MEDS: LISINOPRIL 20 MG TAB PO (09:31)
[2018-06-11] MEDS: INSULIN ASPART [NOVOLOG] 3 ML PEN SC ×5 (09:34→20:59)
[2018-06-11] MEDS: INSULIN GLARGINE [LANTus] (100 UNITS/ML) SYG SC ×2 (09:35→14:02)
[2018-06-11] MEDS: LEVOFLOXACIN 500MG/D5W (PMX) 100 ML IVPB (09:56)
[2018-06-11] MEDS: METHADONE 10 MG TAB PO ×2 (10:58→20:50)
[2018-06-11] MEDS: VANCOMYCIN 1 GM 250 ML IVPB (13:22)
[2018-06-11] MEDS ORDERED: NICOTINE POLACRILEX 4 MG GUM BUCCAL (13:30)
[2018-06-11] MEDS: NICOTINE (21 MG/24 HR) PATCH TRANSDERM (14:29)
[2018-06-11] MEDS: HYDROCODONE/APAP (5/325) TAB PO ×2 (14:30→22:56)
[2018-06-11 15:41] LABS: RAPID PLASMA REAGIN NONREACTIVE (NR)
[2018-06-11] MEDS: MAGNESIUM SULFATE 2 GM/50 ML 50 ML IVPB (18:07)
[2018-06-11] MEDS: POTASSIUM PHOSPHATE 15 MM in SOD CHLORIDE 0.9% 250 ML IVPB (20:45)
[2018-06-11] MEDS: ATORVASTATIN 20 MG TAB PO (20:50)
[2018-06-12] MEDS: VANCOMYCIN 1 GM 250 ML IVPB ×2 (01:21→12:04)
[2018-06-12 05:55] LABS: ADD MAN DIFF? NO
[2018-06-12 05:58] LABS: WHITE BLOOD COUNT 11.4 10^3/ul (4.8-10.8)
[2018-06-12 05:58] LABS: ABNORMAL IP MESSAGE 1; BASOPHILS % 0.3 % (0.0-2.0); EOSINOPHILS # 0.1 10^3/ul (0.0-0.5); EOSINOPHILS % 0.7 % (0.0-7.0); HEMATOCRIT 35.9 % (37.0-47.0); HEMOGLOBIN 12.2 g/dl (12.0-16.0); LYMPHOCYTES # 2.6 10^3/ul (0.8-2.9); LYMPHOCYTES % 22.3 % (15.0-51.0); MEAN CORPUSCULAR HEMOGLOBIN 29.9 pg (29.0-33.0); MEAN PLATELET VOLUME 9.5 fl (7.4-10.4); MONOCYTE # 1.6 10^3/ul (0.3-0.9); MONOCYTES % 14.3 % (0.0-11.0); NEUTROPHILS % 61.3 % (39.0-77.0); PLATELET COUNT 285 10^3/UL (140-415); RED BLOOD COUNT 4.08 10^6/ul (4.20-5.40); RED CELL DISTRIBUTION WIDTH 12.1 % (11.5-14.5)
[2018-06-12] MEDS: PANTOPRAZOLE (EC) 40 MG TAB PO (06:09)
[2018-06-12] MEDS: LEVOTHYROXINE 100 MCG TAB PO (06:09)
[2018-06-12 06:15] LABS: ANION GAP 6 (5-13); BLOOD UREA NITROGEN 10 mg/dl (7-20); CALCIUM 7.7 mg/dl (8.4-10.2); CARBON DIOXIDE 30 mmol/L (21-31); CHLORIDE 94 mmol/L (97-110); CREATININE 0.48 mg/dl (0.44-1.00); Estimated GFR > 60 mL/min (>60); GLUCOSE 276 mg/dl (70-220); POTASSIUM 3.9 mmol/L (3.5-5.1); SODIUM 130 mmol/L (135-144)
[2018-06-12 06:21] LABS: POSITIVE DIFF @See below
[2018-06-12] MEDS: METOPROLOL 25 MG TAB PO ×2 (08:56→22:26)
[2018-06-12] MEDS: NICOTINE (21 MG/24 HR) PATCH TRANSDERM (08:56)
[2018-06-12] MEDS: METHADONE 10 MG TAB PO ×2 (08:57→21:10)
[2018-06-12] MEDS: LISINOPRIL 20 MG TAB PO (08:57)
[2018-06-12] MEDS: INSULIN ASPART [NOVOLOG] 3 ML PEN SC ×7 (09:03→21:21)
[2018-06-12] MEDS: INSULIN GLARGINE [LANTus] (100 UNITS/ML) SYG SC ×2 (09:05→14:48)
[2018-06-12] MEDS: LEVOFLOXACIN 500MG/D5W (PMX) 100 ML IVPB (10:54)
[2018-06-12] MEDS: HYDROCODONE/APAP (5/325) TAB PO ×2 (12:38→18:49)
[2018-06-12] MEDS: LINAGLIPTIN 5 MG TABLET PO (14:45)
[2018-06-12] MEDS: ACCU-CHEK XX ×2 (17:09→21:10)
[2018-06-12] MEDS: ATORVASTATIN 20 MG TAB PO (22:26)
[2018-06-13] MEDS: PANTOPRAZOLE (EC) 40 MG TAB PO (06:25)
[2018-06-13] MEDS: LEVOTHYROXINE 100 MCG TAB PO (06:25)
[2018-06-13] MEDS ORDERED: INSULIN GLARGINE [LANTus] (100 UNITS/ML) SYG SC ×2 (08:00)
[2018-06-13] MEDS: LINAGLIPTIN 5 MG TABLET PO (08:36)
[2018-06-13] MEDS: METOPROLOL 25 MG TAB PO ×2 (08:37→20:19)
[2018-06-13] MEDS: LISINOPRIL 20 MG TAB PO (08:37)
[2018-06-13] MEDS: INSULIN ASPART [NOVOLOG] 3 ML PEN SC ×7 (08:40→20:17)
[2018-06-13] MEDS: ACCU-CHEK XX ×4 (08:41→20:18)
[2018-06-13] MEDS: NICOTINE (21 MG/24 HR) PATCH TRANSDERM (10:39)
[2018-06-13] MEDS: METHADONE 10 MG TAB PO ×2 (10:39→20:18)
[2018-06-13] MEDS: INSULIN GLARGINE [LANTus] (100 UNITS/ML) SYG SC (10:59)
[2018-06-13] MEDS ORDERED: VANCOMYCIN IV PER PHARMACY XX (11:00)
[2018-06-13] MEDS: LEVOFLOXACIN 500MG/D5W (PMX) 100 ML IVPB (11:20)
[2018-06-13] MEDS: VANCOMYCIN 1 GM 250 ML IVPB ×2 (13:35→23:16)
[2018-06-13] MEDS ORDERED: traZODone 50 MG TAB (20:11)
[2018-06-13] MEDS: ATORVASTATIN 20 MG TAB PO (20:18)
[2018-06-13] MEDS: traZODone 100 MG TAB PO (22:01)
[2018-06-14] MEDS: LEVOTHYROXINE 100 MCG TAB PO (05:53)
[2018-06-14] MEDS: PANTOPRAZOLE (EC) 40 MG TAB PO (05:53)
[2018-06-14 07:58] LABS: ADD MAN DIFF? NO
[2018-06-14] MEDS: INSULIN ASPART [NOVOLOG] 3 ML PEN SC ×7 (07:59→20:34)
[2018-06-14] MEDS: ACCU-CHEK XX ×4 (08:00→20:39)
[2018-06-14] MEDS: INSULIN GLARGINE [LANTus] (100 UNITS/ML) SYG SC (08:01)
[2018-06-14 08:03] LABS: WHITE BLOOD COUNT 8.6 10^3/ul (4.8-10.8)
[2018-06-14 08:03] LABS: ABNORMAL IP MESSAGE 1; BASOPHIL # 0.1 10^3/ul (0.0-0.1); BASOPHILS % 0.9 % (0.0-2.0); EOSINOPHILS # 0.2 10^3/ul (0.0-0.5); EOSINOPHILS % 1.7 % (0.0-7.0); HEMATOCRIT 33.5 % (37.0-47.0); HEMOGLOBIN 11.2 g/dl (12.0-16.0); LYMPHOCYTES # 2.6 10^3/ul (0.8-2.9); LYMPHOCYTES % 30.2 % (15.0-51.0); MEAN CORPUSCULAR HEMOGLOBIN 29.9 pg (29.0-33.0); MEAN CORPUSCULAR HGB CONC 33.4 g/dl (32.0-37.0); MEAN CORPUSCULAR VOLUME 89.3 fl (82.0-101.0); MEAN PLATELET VOLUME 9.2 fl (7.4-10.4); MONOCYTE # 1.6 10^3/ul (0.3-0.9); MONOCYTES % 18.2 % (0.0-11.0); NEUTROPHILS % 47.1 % (39.0-77.0); PLATELET COUNT 290 10^3/UL (140-415); RED BLOOD COUNT 3.75 10^6/ul (4.20-5.40); RED CELL DISTRIBUTION WIDTH 12.1 % (11.5-14.5)
[2018-06-14 08:11] LABS: POSITIVE DIFF @See below
[2018-06-14 08:25] LABS: ANION GAP 5 (5-13); BLOOD UREA NITROGEN 15 mg/dl (7-20); CALCIUM 8.2 mg/dl (8.4-10.2); CARBON DIOXIDE 30 mmol/L (21-31); CHLORIDE 95 mmol/L (97-110); CREATININE 0.49 mg/dl (0.44-1.00); Estimated GFR > 60 mL/min (>60); GLUCOSE 288 mg/dl (70-220); POTASSIUM 4.2 mmol/L (3.5-5.1); SODIUM 130 mmol/L (135-144)
[2018-06-14] MEDS: LINAGLIPTIN 5 MG TABLET PO (08:41)
[2018-06-14] MEDS: LISINOPRIL 20 MG TAB PO (08:41)
[2018-06-14] MEDS: METHADONE 10 MG TAB PO ×2 (08:41→20:35)
[2018-06-14] MEDS: METOPROLOL 25 MG TAB PO ×2 (08:42→20:39)
[2018-06-14] MEDS: NICOTINE (21 MG/24 HR) PATCH TRANSDERM (08:42)
[2018-06-14] MEDS: LEVOFLOXACIN 500MG/D5W (PMX) 100 ML IVPB (11:26)
[2018-06-14] MEDS: HYDROCODONE/APAP (5/325) TAB PO ×2 (11:33→17:11)
[2018-06-14] MEDS: VANCOMYCIN 1 GM 250 ML IVPB ×2 (12:46→23:59)
[2018-06-14] MEDS ORDERED: LIDOCAINE 1% (MPF) 30 ML INJ INJ (16:00)
[2018-06-14] MEDS: ATORVASTATIN 20 MG TAB PO (20:35)
[2018-06-14] MEDS: traZODone 100 MG TAB PO (20:36)
[2018-06-15] MEDS: HYDROCODONE/APAP (5/325) TAB PO ×3 (00:06→21:54)
[2018-06-15] MEDS: LEVOTHYROXINE 100 MCG TAB PO (06:18)
[2018-06-15] MEDS: PANTOPRAZOLE (EC) 40 MG TAB PO (06:18)
[2018-06-15] MEDS: ACCU-CHEK XX ×4 (07:00→20:29)
[2018-06-15] MEDS: METHADONE 10 MG TAB PO ×2 (08:50→20:27)
[2018-06-15] MEDS: INSULIN ASPART [NOVOLOG] 3 ML PEN SC ×7 (08:52→20:26)
[2018-06-15] MEDS: INSULIN GLARGINE [LANTus] (100 UNITS/ML) SYG SC (08:56)
[2018-06-15] MEDS: LISINOPRIL 20 MG TAB PO (08:57)
[2018-06-15] MEDS: NICOTINE (21 MG/24 HR) PATCH TRANSDERM (08:57)
[2018-06-15] MEDS: LINAGLIPTIN 5 MG TABLET PO (08:57)
[2018-06-15] MEDS: METOPROLOL 25 MG TAB PO ×2 (08:58→20:29)
[2018-06-15] MEDS: INFLUENZA VIRUS VACCINE 0.5 ML (DISPENSING) IM* (10:45)
[2018-06-15] MEDS: LEVOFLOXACIN 500MG/D5W (PMX) 100 ML IVPB (10:46)
[2018-06-15] MEDS: VANCOMYCIN 1 GM 250 ML IVPB (12:10)
[2018-06-15] MEDS: traZODone 100 MG TAB PO (20:28)
[2018-06-15] MEDS: ATORVASTATIN 20 MG TAB PO (20:28)
[2018-06-15] MEDS: OXACILLIN 2 GM in SOD CHLORIDE 0.9% 50 ML IVPB (22:51)
[2018-06-16] MEDS: OXACILLIN 2 GM in SOD CHLORIDE 0.9% 50 ML IVPB ×5 (05:25→20:54)
[2018-06-16 06:15] LABS: BLOOD UREA NITROGEN 17 mg/dl (7-20)
[2018-06-16 06:15] LABS: CREATININE 0.51 mg/dl (0.44-1.00)
[2018-06-16] MEDS: LEVOTHYROXINE 100 MCG TAB PO (06:24)
[2018-06-16] MEDS: PANTOPRAZOLE (EC) 40 MG TAB PO (06:24)
[2018-06-16] MEDS: HYDROCODONE/APAP (5/325) TAB PO (06:57)
[2018-06-16] MEDS: ACCU-CHEK XX ×4 (08:25→20:37)
[2018-06-16] MEDS: INSULIN ASPART [NOVOLOG] 3 ML PEN SC ×7 (08:29→20:37)
[2018-06-16] MEDS: INSULIN GLARGINE [LANTus] (100 UNITS/ML) SYG SC (08:31)
[2018-06-16] MEDS: LINAGLIPTIN 5 MG TABLET PO ×2 (09:00→09:23)
[2018-06-16] MEDS: LISINOPRIL 20 MG TAB PO (09:00)
[2018-06-16] MEDS: METOPROLOL 25 MG TAB PO ×3 (09:00→20:36)
[2018-06-16] MEDS: NICOTINE (21 MG/24 HR) PATCH TRANSDERM (09:05)
[2018-06-16] MEDS: METHADONE 10 MG TAB PO ×2 (11:10→20:37)
[2018-06-16] MEDS: ATORVASTATIN 20 MG TAB PO (20:35)
[2018-06-16] MEDS: traZODone 100 MG TAB PO (20:36)
[2018-06-17] MEDS: OXACILLIN 2 GM in SOD CHLORIDE 0.9% 50 ML IVPB ×5 (01:38→16:56)
[2018-06-17 06:15] LABS: ADD MAN DIFF? NO
[2018-06-17] MEDS: PANTOPRAZOLE (EC) 40 MG TAB PO (06:19)
[2018-06-17] MEDS: LEVOTHYROXINE 100 MCG TAB PO (06:19)
[2018-06-17 06:33] LABS: BASOPHILS % 0.5 % (0.0-2.0); EOSINOPHILS # 0.2 10^3/ul (0.0-0.5); EOSINOPHILS % 2.1 % (0.0-7.0); HEMATOCRIT 33.4 % (37.0-47.0); LYMPHOCYTES # 2.2 10^3/ul (0.8-2.9); LYMPHOCYTES % 29.5 % (15.0-51.0); MEAN CORPUSCULAR HEMOGLOBIN 30.1 pg (29.0-33.0); MEAN CORPUSCULAR HGB CONC 32.9 g/dl (32.0-37.0); MEAN CORPUSCULAR VOLUME 91.3 fl (82.0-101.0); MONOCYTE # 1.2 10^3/ul (0.3-0.9); MONOCYTES % 15.7 % (0.0-11.0); NEUTROPHIL # 3.7 10^3/ul (1.6-7.5); NEUTROPHILS % 50.3 % (39.0-77.0); PLATELET COUNT 385 10^3/UL (140-415); RED BLOOD COUNT 3.66 10^6/ul (4.20-5.40); RED CELL DISTRIBUTION WIDTH 12.5 % (11.5-14.5)
[2018-06-17 06:33] LABS: WHITE BLOOD COUNT 7.5 10^3/ul (4.8-10.8)
[2018-06-17] MEDS: ACCU-CHEK XX ×2 (07:00→11:30)
[2018-06-17 07:06] LABS: ANION GAP 7 (5-13); BLOOD UREA NITROGEN 20 mg/dl (7-20); CALCIUM 8.3 mg/dl (8.4-10.2); CARBON DIOXIDE 30 mmol/L (21-31); CHLORIDE 96 mmol/L (97-110); CREATININE 0.55 mg/dl (0.44-1.00); Estimated GFR > 60 mL/min (>60); GLUCOSE 216 mg/dl (70-220); POTASSIUM 4.1 mmol/L (3.5-5.1); SODIUM 133 mmol/L (135-144)
[2018-06-17] MEDS: INSULIN GLARGINE [LANTus] (100 UNITS/ML) SYG SC (08:25)
[2018-06-17] MEDS: INSULIN ASPART [NOVOLOG] 3 ML PEN SC ×4 (08:26→12:28)
[2018-06-17] MEDS: LINAGLIPTIN 5 MG TABLET PO (08:28)
[2018-06-17] MEDS: LISINOPRIL 20 MG TAB PO (08:29)
[2018-06-17] MEDS: METHADONE 10 MG TAB PO (08:30)
[2018-06-17] MEDS: METOPROLOL 25 MG TAB PO (08:31)
[2018-06-17] MEDS: NICOTINE (21 MG/24 HR) PATCH TRANSDERM (08:32)
== END 2018-06-17 17:30 | DRG 637 ==
LOC: E/R 22:46 → ICU 06-09 01:02 → 2NE 06-10 21:21
PROC: 0H98XZZ Drainage of Buttock Skin, External Approach (ICD-10-PCS; principal; 2018-06-15)
DX: E11.10 Type 2 diabetes mellitus with ketoacidosis without coma (principal); E43 Unspecified severe protein-calorie malnutrition; L03.317 Cellulitis of buttock; Z68.1 Body mass index [BMI] 19.9 or less, adult; E87.2 Acidosis; B19.20 Unspecified viral hepatitis C without hepatic coma; Z72.0 Tobacco use; Z66 Do not resuscitate; Z79.899 Other long term (current) drug therapy; I10 Essential (primary) hypertension; E03.9 Hypothyroidism, unspecified; Z91.14 Patient's other noncompliance with medication regimen; R51 Headache; K20.9 Esophagitis, unspecified; K31.9 Disease of stomach and duodenum, unspecified; F32.9 Major depressive disorder, single episode, unspecified; R53.81 Other malaise; S70.02XA Contusion of left hip, initial encounter; X58.XXXA Exposure to other specified factors, initial encounter
CPT/HCPCS: 36415; 36600; 70450; 71045; 74176; 76536; 80048; 80076; 80202; 80307; 81003; 82565; 82803; 82962; 83036; 83735; 84100; 84439; 84443; 84481; 84520; 85025; 85610; 85730; 86592; 86703; 86704; 86709; 86803; 87040; 87070; 87075; 87081; 87340; 93005; 93306; 94640; 94664; 96374; 96375; 97161; 99291-25

== ENCOUNTER 2018-08-04 13:09 | Inpatient (IN) | payer OTHER, MEDICAID ==
[2018-08-04 18:17] LABS: ADD MAN DIFF? NO
[2018-08-04 18:23] LABS: BASOPHIL # 0.1 10^3/ul (0.0-0.1); BASOPHILS % 0.3 % (0.0-2.0); EOSINOPHILS % 0.1 % (0.0-7.0); HEMATOCRIT 45.1 % (37.0-47.0); HEMOGLOBIN 15.7 g/dl (12.0-16.0); LYMPHOCYTES # 1.4 10^3/ul (0.8-2.9); LYMPHOCYTES % 7.8 % (15.0-51.0); MEAN CORPUSCULAR HEMOGLOBIN 29.5 pg (29.0-33.0); MEAN CORPUSCULAR HGB CONC 34.8 g/dl (32.0-37.0); MEAN CORPUSCULAR VOLUME 84.8 fl (82.0-101.0); MEAN PLATELET VOLUME 9.7 fl (7.4-10.4); MONOCYTE # 1.3 10^3/ul (0.3-0.9); MONOCYTES % 7.3 % (0.0-11.0); NEUTROPHIL # 15.1 10^3/ul (1.6-7.5); NEUTROPHILS % 83.8 % (39.0-77.0); PLATELET COUNT 226 10^3/UL (140-415); RED BLOOD COUNT 5.32 10^6/ul (4.20-5.40); RED CELL DISTRIBUTION WIDTH 12.7 % (11.5-14.5)
[2018-08-04 18:26] LABS: AADO2 Arterial 33.2 mmHg (7.0-24.0); Arterial COHb 1.1 % (0.0-3.0); Arterial Fraction of Oxyhgb 92.8 % (93.0-99.0); Arterial HCO3 26.5 mmol/L (22.0-26.0); Arterial MetHb 0.2 % (0.0-1.5); Arterial pCO2 37.3 mmhg (35-45); MODE ROOM AIR; Site Right Brachial
[2018-08-04 18:45] LABS: ALBUMIN 5.1 g/dl (3.3-4.9); ALBUMIN/GLOBULIN RATIO 1.41; ALKALINE PHOSPHATASE 73 IU/L (42-121); ANION GAP 28 (5-13); ASPARTATE AMINO TRANSFERASE 32 IU/L (15-46); BILIRUBIN,INDIRECT 0.9 mg/dl (0-1.1); BILIRUBIN,TOTAL 0.9 mg/dl (0.2-1.3); BLOOD UREA NITROGEN 23 mg/dl (7-20); CALCIUM 10.2 mg/dl (8.4-10.2); CARBON DIOXIDE 24 mmol/L (21-31); CHLORIDE 79 mmol/L (97-110); CREATININE 0.98 mg/dl (0.44-1.00); Estimated GFR 56 mL/min (>60); LIPASE 54 U/L (23-300); POTASSIUM 3.6 mmol/L (3.5-5.1); SODIUM 131 mmol/L (135-144); TOTAL PROTEIN 8.7 g/dl (6.1-8.1)
[2018-08-04 18:51] LABS: ALANINE AMINOTRANSFERASE < 6 IU/L (13-69); ETHANOL < 10.0 mg/dl (0-0)
[2018-08-04] MEDS: SOD CHLORIDE 0.9% 460 ML IV (18:52)
[2018-08-04 18:53] LABS: GLUCOSE 551 mg/dl (70-220)
[2018-08-04] MEDS: morphine 4 MG/ML VIAL IV (18:53)
[2018-08-04] MEDS: ONDANSETRON 4 MG INJ IV (18:53)
[2018-08-04] MEDS: INSULIN LISPRO 100 UNIT/ML VIAL SC (19:41)
[2018-08-04] MEDS: SOD CHLORIDE 0.9% 1,000 ML IV (19:41)
[2018-08-04 19:52] LABS: URINE BLOOD (Dip) POC Trace-intact (NEGATIVE); URINE KETONES (Dip) POC 3+ (NEGATIVE); URINE LEUKOCYTE EST (Dip) POC Negative (NEGATIVE); URINE NITRITE (Dip) POC Negative (NEGATIVE); URINE TOTAL PROTEIN POC Negative (NEGATIVE)
[2018-08-04 19:52] LABS: URINE PH (Dip) POC 5.5 (5.0-8.5)
[2018-08-05] MEDS ORDERED: ACETAMINOPHEN 325 MG TAB PO (00:30)
[2018-08-05] MEDS ORDERED: NACL 0.9% 3 ML SYG IV (00:30)
[2018-08-05] MEDS ORDERED: GLUCAGON 1 MG INJ IM (01:00)
[2018-08-05] MEDS ORDERED: GLUCOSE GEL 15 GRAM TUBE BUCCAL (01:00)
[2018-08-05] MEDS ORDERED: GLUCOSE GEL 15 GRAM TUBE PO ×2 (01:00)
[2018-08-05] MEDS ORDERED: DEXTROSE 50% 50 ML SYRINGE IV (01:00)
[2018-08-05] MEDS: METHADONE 10 MG TAB PO ×2 (01:06→15:18)
[2018-08-05] MEDS: NICOTINE (21 MG/24 HR) PATCH TRANSDERM ×2 (01:07→08:51)
[2018-08-05] MEDS: PANTOPRAZOLE 40 MG INJ IV ×3 (01:52→17:14)
[2018-08-05] MEDS: INSULIN GLARGINE [LANTus] (100 UNITS/ML) SYG SC ×2 (01:55→20:52)
[2018-08-05] MEDS: ACCU-CHEK XX (01:55)
[2018-08-05] MEDS: SOD CHLORIDE 0.9% 1,000 ML IV ×3 (05:59→17:21)
[2018-08-05] MEDS: LEVOTHYROXINE 100 MCG TAB PO (06:01)
[2018-08-05 07:12] LABS: ADD MAN DIFF? NO; ADD UMIC NO; UR ASCORBIC ACID NEGATIVE (NEGATIVE); UR BILIRUBIN (Dip) NEGATIVE (NEGATIVE); UR BLOOD (Dip) NEGATIVE (NEGATIVE); UR CLARITY CLEAR (CLEAR); UR COLOR STRAW (YELLOW); UR GLUCOSE (Dip) 3+ mg/dL (NEGATIVE); UR KETONES (Dip) 2+ mg/dL (NEGATIVE); UR LEUKOCYTE ESTERASE (Dip) NEGATIVE Leu/ul (NEGATIVE); UR NITRITE (Dip) NEGATIVE (NEGATIVE); UR SPECIFIC GRAVITY (Dip) 1.026 (1.003-1.030); UR TOTAL PROTEIN (Dip) NEGATIVE (NEGATIVE); UR UROBILINOGEN (Dip) NEGATIVE (NEGATIVE)
[2018-08-05 07:14] LABS: WHITE BLOOD COUNT 18.7 10^3/ul (4.8-10.8)
[2018-08-05 07:14] LABS: ABNORMAL IP MESSAGE 1; BASOPHILS % 0.2 % (0.0-2.0); HEMATOCRIT 42.9 % (37.0-47.0); HEMOGLOBIN 14.8 g/dl (12.0-16.0); LYMPHOCYTES # 2.3 10^3/ul (0.8-2.9); LYMPHOCYTES % 12.5 % (15.0-51.0); MEAN CORPUSCULAR HEMOGLOBIN 29.7 pg (29.0-33.0); MEAN CORPUSCULAR HGB CONC 34.5 g/dl (32.0-37.0); MEAN CORPUSCULAR VOLUME 86.1 fl (82.0-101.0); MEAN PLATELET VOLUME 9.7 fl (7.4-10.4); MONOCYTE # 1.7 10^3/ul (0.3-0.9); MONOCYTES % 9.3 % (0.0-11.0); NEUTROPHIL # 14.5 10^3/ul (1.6-7.5); NEUTROPHILS % 77.5 % (39.0-77.0); PLATELET COUNT 201 10^3/UL (140-415); RED BLOOD COUNT 4.98 10^6/ul (4.20-5.40); RED CELL DISTRIBUTION WIDTH 13.1 % (11.5-14.5)
[2018-08-05 07:18] LABS: POSITIVE DIFF @See below
[2018-08-05 07:36] LABS: ALANINE AMINOTRANSFERASE 17 IU/L (13-69); ALKALINE PHOSPHATASE 65 IU/L (42-121); ANION GAP 19 (5-13); ASPARTATE AMINO TRANSFERASE 25 IU/L (15-46); BLOOD UREA NITROGEN 16 mg/dl (7-20); CALCIUM 9.4 mg/dl (8.4-10.2); CARBON DIOXIDE 27 mmol/L (21-31); CHLORIDE 89 mmol/L (97-110); Estimated GFR > 60 mL/min (>60); GLUCOSE 360 mg/dl (70-220); SODIUM 135 mmol/L (135-144)
[2018-08-05 07:37] LABS: ALBUMIN 4.4 g/dl (3.3-4.9); ALBUMIN/GLOBULIN RATIO 1.37; TOTAL PROTEIN 7.6 g/dl (6.1-8.1)
[2018-08-05 07:55] LABS: AMPHETAMINE/METHAMPHETAMINE Negative (NEGATIVE); BARBITURATES Negative (NEGATIVE); BENZODIAZEPINES Negative (NEGATIVE); CANNABINOIDS Negative (NEGATIVE); COCAINE Negative (NEGATIVE)
[2018-08-05 08:01] LABS: OPIATES Positive (NEGATIVE)
[2018-08-05 08:01] LABS: HEMOGLOBIN A1C 11.1 % (0-5.9)
[2018-08-05] MEDS: INSULIN ASPART [NOVOLOG] 3 ML PEN SC ×7 (08:43→20:51)
[2018-08-05] MEDS: LEVOFLOXACIN 500MG/D5W (PMX) 100 ML IVPB (08:48)
[2018-08-05] MEDS: VENLAFAXINE (XR) 75 MG CAP PO (08:49)
[2018-08-05] MEDS: METOPROLOL 25 MG TAB PO ×2 (08:49→20:48)
[2018-08-05] MEDS: LINAGLIPTIN 5 MG TABLET PO (08:50)
[2018-08-05] MEDS: LISINOPRIL 20 MG TAB PO (08:50)
[2018-08-05] MEDS: traZODone 100 MG TAB PO (20:36)
[2018-08-05] MEDS: ATORVASTATIN 20 MG TAB PO (20:36)
[2018-08-06] MEDS: INSULIN ASPART [NOVOLOG] 3 ML PEN SC ×6 (01:42→21:15)
[2018-08-06 05:28] LABS: ADD MAN DIFF? NO
[2018-08-06] MEDS: PANTOPRAZOLE 40 MG INJ IV ×2 (05:28→18:10)
[2018-08-06] MEDS: DEXTROSE 50% 50 ML SYRINGE IV ×2 (05:29→08:35)
[2018-08-06 05:32] LABS: WHITE BLOOD COUNT 12.7 10^3/ul (4.8-10.8)
[2018-08-06 05:32] LABS: ABNORMAL IP MESSAGE 1; BASOPHILS % 0.2 % (0.0-2.0); EOSINOPHILS % 0.3 % (0.0-7.0); HEMATOCRIT 38.1 % (37.0-47.0); HEMOGLOBIN 12.7 g/dl (12.0-16.0); LYMPHOCYTES # 2.7 10^3/ul (0.8-2.9); LYMPHOCYTES % 21.5 % (15.0-51.0); MEAN CORPUSCULAR HEMOGLOBIN 29.3 pg (29.0-33.0); MEAN CORPUSCULAR HGB CONC 33.3 g/dl (32.0-37.0); MEAN PLATELET VOLUME 9.6 fl (7.4-10.4); MONOCYTE # 1.7 10^3/ul (0.3-0.9); NEUTROPHIL # 8.1 10^3/ul (1.6-7.5); PLATELET COUNT 166 10^3/UL (140-415); RED BLOOD COUNT 4.33 10^6/ul (4.20-5.40); RED CELL DISTRIBUTION WIDTH 12.9 % (11.5-14.5)
[2018-08-06 05:35] LABS: MONOCYTES % 13.4 % (0.0-11.0); POSITIVE DIFF @See below
[2018-08-06 05:47] LABS: ANION GAP 7 (5-13); BLOOD UREA NITROGEN 19 mg/dl (7-20); CALCIUM 8.8 mg/dl (8.4-10.2); CARBON DIOXIDE 30 mmol/L (21-31); CHLORIDE 98 mmol/L (97-110); CREATININE 0.56 mg/dl (0.44-1.00); Estimated GFR > 60 mL/min (>60); GLUCOSE 78 mg/dl (70-220); PHOSPHORUS 3.1 mg/dl (2.5-4.9); POTASSIUM 3.4 mmol/L (3.5-5.1); SODIUM 135 mmol/L (135-144)
[2018-08-06] MEDS: LEVOTHYROXINE 100 MCG TAB PO (05:52)
[2018-08-06] MEDS ORDERED: POTASSIUM CHLORIDE (SR) 20 MEQ TAB PO (07:30)
[2018-08-06] MEDS: LEVOFLOXACIN 500MG/D5W (PMX) 100 ML IVPB (08:47)
[2018-08-06] MEDS: VENLAFAXINE (XR) 75 MG CAP PO (09:00)
[2018-08-06] MEDS: LINAGLIPTIN 5 MG TABLET PO (09:00)
[2018-08-06] MEDS: NICOTINE (21 MG/24 HR) PATCH TRANSDERM (09:00)
[2018-08-06] MEDS: METOPROLOL 25 MG TAB PO ×2 (09:00→21:16)
[2018-08-06] MEDS: METHADONE 10 MG TAB PO (09:00)
[2018-08-06] MEDS: LISINOPRIL 20 MG TAB PO (09:00)
[2018-08-06] MEDS: POTASSIUM CHLORIDE 100 ML IVPB (10:07)
[2018-08-06] MEDS: DEXTROSE 5%-0.45% NACL 1,000 ML IV (14:46)
[2018-08-06] MEDS: PROPOFOL 20 ML (16:58)
[2018-08-06] MEDS: FENTAnyl 50 MCG/ML VIAL (16:58)
[2018-08-06] MEDS ORDERED: FENTAnyl 50 MCG/ML VIAL IV ×3 (17:00)
[2018-08-06] MEDS ORDERED: ONDANSETRON 4 MG INJ IV (17:00)
[2018-08-06] MEDS: METOCLOPRAMIDE 10 MG INJ IV (18:10)
[2018-08-06] MEDS: INSULIN GLARGINE [LANTus] (100 UNITS/ML) SYG SC (21:14)
[2018-08-06] MEDS: ATORVASTATIN 20 MG TAB PO (21:15)
[2018-08-06] MEDS: traZODone 100 MG TAB PO (21:16)
[2018-08-06] MEDS: SUCRALFATE (100 MG/ML) 10ML CUP PO (21:16)
[2018-08-07] MEDS: METOCLOPRAMIDE 10 MG INJ IV ×3 (00:49→13:09)
[2018-08-07] MEDS: INSULIN ASPART [NOVOLOG] 3 ML PEN SC ×4 (00:52→12:18)
[2018-08-07] MEDS: LEVOTHYROXINE 100 MCG TAB PO ×2 (06:03→09:12)
[2018-08-07] MEDS: FAMOTIDINE 20 MG INJ IV (06:03)
[2018-08-07] MEDS: ONDANSETRON 4 MG INJ IV (06:53)
[2018-08-07] MEDS: LISINOPRIL 20 MG TAB PO (09:10)
[2018-08-07] MEDS: LEVOFLOXACIN 500MG/D5W (PMX) 100 ML IVPB (09:10)
[2018-08-07] MEDS: VENLAFAXINE (XR) 75 MG CAP PO (09:11)
[2018-08-07] MEDS: LINAGLIPTIN 5 MG TABLET PO (09:11)
[2018-08-07] MEDS: METOPROLOL 25 MG TAB PO (09:12)
[2018-08-07] MEDS: METHADONE 10 MG TAB PO (09:13)
[2018-08-07] MEDS: NICOTINE (21 MG/24 HR) PATCH TRANSDERM (09:14)
[2018-08-07] MEDS: SUCRALFATE (100 MG/ML) 10ML CUP PO ×2 (09:14→13:09)
[2018-08-07] MEDS ORDERED: PANTOPRAZOLE (EC) 40 MG TAB PO (18:00)
[2018-08-07] MEDS ORDERED: INSULIN GLARGINE [LANTus] (100 UNITS/ML) SYG SC (21:00)
[2018-08-08] MEDS ORDERED: ACCU-CHEK XX (02:00)
== END 2018-08-07 17:00 | disposition home or self-care (01) | DRG 378 ==
LOC: E/R 13:09 → PP2 20:11
PROVIDERS: Internal Medicine
PROC: 0DB68ZX Excision of Stomach, Via Natural or Artificial Opening Endoscopic, Diagnostic (ICD-10-PCS; principal; 2018-08-06 15:35)
DX: K29.71 Gastritis, unspecified, with bleeding (principal); L02.31 Cutaneous abscess of buttock; F11.20 Opioid dependence, uncomplicated; R65.10 Systemic inflammatory response syndrome (SIRS) of non-infectious origin without acute organ dysfunction; B19.20 Unspecified viral hepatitis C without hepatic coma; E10.65 Type 1 diabetes mellitus with hyperglycemia; E03.9 Hypothyroidism, unspecified; E86.0 Dehydration; F17.200 Nicotine dependence, unspecified, uncomplicated; F32.9 Major depressive disorder, single episode, unspecified; I10 Essential (primary) hypertension; K22.11 Ulcer of esophagus with bleeding; K44.9 Diaphragmatic hernia without obstruction or gangrene; K80.20 Calculus of gallbladder without cholecystitis without obstruction; Z79.4 Long term (current) use of insulin; Z91.11 Patient's noncompliance with dietary regimen
CPT/HCPCS: 36415; 36600; 71045; 76705; 80048; 80053; 80307; 81003; 82803; 82962; 83036; 83690; 83735; 84100; 85025; 87040; 87070; 87081; 87086; 88305; 88312; 88313; 93005; 96372; 96374; 96375; 99285-25; G0378

== ENCOUNTER 2019-01-06 16:42 | Inpatient (IN) | payer OTHER, MEDICAID ==
[2019-01-06 18:00] LABS: AADO2 Venous 73.6 mmHg; MODE ROOM AIR; MetHgb Venous 0.1 %; Sample Type Blood venous; Site OTHER; Venous COHb 2.7 %; Venous Oxygen Sat 66.9 mmHG (55.0-75.0); Venous Total Hemglobin 16.4 g/dl
[2019-01-06] MEDS: SOD CHLORIDE 0.9% 1,000 ML IV (18:00)
[2019-01-06] MEDS: LACTATED RINGER'S 1,000 ML IV ×2 (18:02→20:15)
[2019-01-06 18:08] LABS: ADD MAN DIFF? NO
[2019-01-06 18:11] LABS: BASOPHILS % 0.4 % (0.0-2.0); EOSINOPHILS % 0.4 % (0.0-7.0); HEMATOCRIT 43.1 % (37.0-47.0); HEMOGLOBIN 14.9 g/dl (12.0-16.0); LYMPHOCYTES # 3.8 10^3/ul (0.8-2.9); MEAN CORPUSCULAR HEMOGLOBIN 29.9 pg (29.0-33.0); MEAN CORPUSCULAR HGB CONC 34.6 g/dl (32.0-37.0); MEAN CORPUSCULAR VOLUME 86.4 fl (82.0-101.0); MEAN PLATELET VOLUME 10.2 fl (7.4-10.4); MONOCYTE # 1.3 10^3/ul (0.3-0.9); MONOCYTES % 11.6 % (0.0-11.0); NEUTROPHILS % 53.2 % (39.0-77.0); PLATELET COUNT 222 10^3/UL (140-415); RED BLOOD COUNT 4.99 10^6/ul (4.20-5.40)
[2019-01-06 18:11] LABS: WHITE BLOOD COUNT 11.2 10^3/ul (4.8-10.8)
[2019-01-06 18:34] LABS: ANION GAP 14 (5-13); BLOOD UREA NITROGEN 21 mg/dl (7-20); CALCIUM 9.9 mg/dl (8.4-10.2); CARBON DIOXIDE 31 mmol/L (21-31); CHLORIDE 91 mmol/L (97-110); CREATININE 1.25 mg/dl (0.44-1.00); Estimated GFR 42 mL/min (>60); GLUCOSE 135 mg/dl (70-220); MAGNESIUM 1.8 mg/dl (1.7-2.5); SODIUM 136 mmol/L (135-144)
[2019-01-06 18:45] LABS: TROPONIN-I < 0.012 ng/ml (0.000-0.120)
[2019-01-06] MEDS ORDERED: ONDANSETRON 4 MG INJ IV (20:30)
[2019-01-06] MEDS ORDERED: ACETAMINOPHEN 325 MG TAB PO (20:30)
[2019-01-07] MEDS ORDERED: NACL 0.9% 3 ML SYG IV (01:00)
[2019-01-07] MEDS ORDERED: ONDANSETRON 4 MG INJ IV (01:00)
[2019-01-07] MEDS ORDERED: ACETAMINOPHEN 325 MG TAB PO (01:00)
[2019-01-07] MEDS: SOD CHLORIDE 0.9% 1,000 ML IV ×4 (01:19→23:50)
[2019-01-07] MEDS ORDERED: GLUCOSE GEL 15 GRAM TUBE PO ×2 (05:00)
[2019-01-07] MEDS ORDERED: GLUCOSE GEL 15 GRAM TUBE BUCCAL (05:00)
[2019-01-07] MEDS ORDERED: GLUCAGON 1 MG INJ IM (05:00)
[2019-01-07] MEDS ORDERED: DEXTROSE 50% 50 ML SYRINGE IV (05:00)
[2019-01-07 05:30] LABS: ADD MAN DIFF? NO
[2019-01-07 05:33] LABS: BASOPHILS % 0.3 % (0.0-2.0); EOSINOPHILS # 0.1 10^3/ul (0.0-0.5); EOSINOPHILS % 1.7 % (0.0-7.0); HEMATOCRIT 40.2 % (37.0-47.0); HEMOGLOBIN 13.8 g/dl (12.0-16.0); LYMPHOCYTES # 3.5 10^3/ul (0.8-2.9); LYMPHOCYTES % 45.8 % (15.0-51.0); MEAN CORPUSCULAR HEMOGLOBIN 29.8 pg (29.0-33.0); MEAN CORPUSCULAR HGB CONC 34.3 g/dl (32.0-37.0); MEAN CORPUSCULAR VOLUME 86.8 fl (82.0-101.0); MEAN PLATELET VOLUME 10.4 fl (7.4-10.4); MONOCYTE # 0.7 10^3/ul (0.3-0.9); MONOCYTES % 8.7 % (0.0-11.0); NEUTROPHIL # 3.3 10^3/ul (1.6-7.5); NEUTROPHILS % 43.2 % (39.0-77.0); PLATELET COUNT 198 10^3/UL (140-415); RED BLOOD COUNT 4.63 10^6/ul (4.20-5.40); RED CELL DISTRIBUTION WIDTH 12.3 % (11.5-14.5)
[2019-01-07 05:33] LABS: WHITE BLOOD COUNT 7.6 10^3/ul (4.8-10.8)
[2019-01-07] MEDS: LEVOTHYROXINE 100 MCG TAB PO (06:05)
[2019-01-07] MEDS: PANTOPRAZOLE (EC) 40 MG TAB PO ×2 (06:05→17:14)
[2019-01-07 06:07] LABS: ALANINE AMINOTRANSFERASE 23 IU/L (13-69); ALBUMIN/GLOBULIN RATIO 1.15; ALKALINE PHOSPHATASE 36 IU/L (42-121); ANION GAP 4 (5-13); ASPARTATE AMINO TRANSFERASE 23 IU/L (15-46); BILIRUBIN,INDIRECT 0.4 mg/dl (0-1.1); BILIRUBIN,TOTAL 0.4 mg/dl (0.2-1.3); BLOOD UREA NITROGEN 16 mg/dl (7-20); CALCIUM 8.6 mg/dl (8.4-10.2); CARBON DIOXIDE 29 mmol/L (21-31); CHLORIDE 101 mmol/L (97-110); CHOLESTEROL 127 mg/dl (100-200); CREATININE 0.72 mg/dl (0.44-1.00); Estimated GFR > 60 mL/min (>60); GLUCOSE 346 mg/dl (70-220); HDL CHOLESTEROL 25 mg/dl (33-92); LDL CHOLESTEROL,CALCULATED 72 mg/dl; POTASSIUM 4.3 mmol/L (3.5-5.1); SODIUM 134 mmol/L (135-144); TOTAL PROTEIN 5.6 g/dl (6.1-8.1); TRIGLYCERIDES 151 mg/dl (0-149)
[2019-01-07] MEDS ORDERED: INSULIN LISPRO 6 UNIT SQ (06:30)
[2019-01-07] MEDS: INSULIN ASPART [NOVOLOG] 3 ML PEN SC ×5 (08:24→21:00)
[2019-01-07] MEDS: VENLAFAXINE (XR) 75 MG CAP PO (09:50)
[2019-01-07] MEDS: SUCRALFATE (100 MG/ML) 10ML CUP PO ×4 (09:50→20:39)
[2019-01-07] MEDS: METOPROLOL 25 MG TAB PO ×2 (09:50→20:32)
[2019-01-07] MEDS: INSULIN GLARGINE [LANTus] (100 UNITS/ML) SYG SC (09:51)
[2019-01-07] MEDS: METHADONE 1 MG/ML (ORAL SOLN) PO (14:35)
[2019-01-07] MEDS: ATORVASTATIN 20 MG TAB PO (20:32)
[2019-01-07] MEDS: traZODone 100 MG TAB PO (20:32)
[2019-01-08] MEDS: LEVOTHYROXINE 100 MCG TAB PO (06:17)
[2019-01-08] MEDS: PANTOPRAZOLE (EC) 40 MG TAB PO ×2 (06:17→17:24)
[2019-01-08 06:19] LABS: ADD MAN DIFF? NO
[2019-01-08 06:34] LABS: WHITE BLOOD COUNT 10.5 10^3/ul (4.8-10.8)
[2019-01-08 06:34] LABS: BASOPHILS % 0.3 % (0.0-2.0); EOSINOPHILS # 0.1 10^3/ul (0.0-0.5); EOSINOPHILS % 1.3 % (0.0-7.0); HEMATOCRIT 41.4 % (37.0-47.0); LYMPHOCYTES # 4.4 10^3/ul (0.8-2.9); LYMPHOCYTES % 41.6 % (15.0-51.0); MEAN CORPUSCULAR HEMOGLOBIN 29.7 pg (29.0-33.0); MEAN CORPUSCULAR HGB CONC 33.8 g/dl (32.0-37.0); MEAN CORPUSCULAR VOLUME 87.9 fl (82.0-101.0); MEAN PLATELET VOLUME 10.4 fl (7.4-10.4); MONOCYTE # 0.8 10^3/ul (0.3-0.9); MONOCYTES % 7.5 % (0.0-11.0); NEUTROPHIL # 5.2 10^3/ul (1.6-7.5); PLATELET COUNT 217 10^3/UL (140-415); RED BLOOD COUNT 4.71 10^6/ul (4.20-5.40)
[2019-01-08 06:50] LABS: ANION GAP 3 (5-13); BLOOD UREA NITROGEN 13 mg/dl (7-20); CALCIUM 8.8 mg/dl (8.4-10.2); CARBON DIOXIDE 32 mmol/L (21-31); CHLORIDE 103 mmol/L (97-110); CREATININE 0.61 mg/dl (0.44-1.00); Estimated GFR > 60 mL/min (>60); MAGNESIUM 1.7 mg/dl (1.7-2.5); PHOSPHORUS 3.3 mg/dl (2.5-4.9); POTASSIUM 3.8 mmol/L (3.5-5.1); SODIUM 138 mmol/L (135-144)
[2019-01-08] MEDS: SOD CHLORIDE 0.9% 1,000 ML IV ×2 (06:56→10:46)
[2019-01-08 07:00] LABS: LACTIC ACID 1.2 mmol/L (0.5-2.0)
[2019-01-08 07:09] LABS: GLUCOSE 39 mg/dl (70-220)
[2019-01-08] MEDS: DEXTROSE 50% 50 ML SYRINGE IV (07:21)
[2019-01-08] MEDS: INSULIN ASPART [NOVOLOG] 3 ML PEN SC ×5 (07:35→17:30)
[2019-01-08] MEDS: INSULIN GLARGINE [LANTus] (100 UNITS/ML) SYG SC (08:00)
[2019-01-08] MEDS: VENLAFAXINE (XR) 75 MG CAP PO (08:35)
[2019-01-08] MEDS: METOPROLOL 25 MG TAB PO (08:35)
[2019-01-08] MEDS: SUCRALFATE (100 MG/ML) 10ML CUP PO ×3 (08:36→17:00)
[2019-01-08] MEDS: METHADONE 1 MG/ML (ORAL SOLN) PO ×2 (10:49→12:52)
[2019-01-08 15:17] LABS: ADD UMIC NO; UR ASCORBIC ACID NEGATIVE (NEGATIVE); UR BILIRUBIN (Dip) NEGATIVE (NEGATIVE); UR BLOOD (Dip) NEGATIVE (NEGATIVE); UR CLARITY CLEAR (CLEAR); UR COLOR STRAW (YELLOW); UR GLUCOSE (Dip) 2+ mg/dL (NEGATIVE); UR KETONES (Dip) NEGATIVE (NEGATIVE); UR LEUKOCYTE ESTERASE (Dip) NEGATIVE Leu/ul (NEGATIVE); UR NITRITE (Dip) NEGATIVE (NEGATIVE); UR TOTAL PROTEIN (Dip) NEGATIVE (NEGATIVE); UR UROBILINOGEN (Dip) NEGATIVE (NEGATIVE)
[2019-01-08 15:56] LABS: ADD UMIC NO; UR ASCORBIC ACID NEGATIVE (NEGATIVE); UR BILIRUBIN (Dip) NEGATIVE (NEGATIVE); UR BLOOD (Dip) NEGATIVE (NEGATIVE); UR CLARITY CLEAR (CLEAR); UR COLOR STRAW (YELLOW); UR GLUCOSE (Dip) 2+ mg/dL (NEGATIVE); UR KETONES (Dip) NEGATIVE (NEGATIVE); UR LEUKOCYTE ESTERASE (Dip) NEGATIVE Leu/ul (NEGATIVE); UR NITRITE (Dip) NEGATIVE (NEGATIVE); UR SPECIFIC GRAVITY (Dip) 1.012 (1.003-1.030); UR TOTAL PROTEIN (Dip) NEGATIVE (NEGATIVE); UR UROBILINOGEN (Dip) NEGATIVE (NEGATIVE)
[2019-01-08] MEDS: LISINOPRIL 20 MG TAB PO (17:24)
[2019-01-09] MEDS ORDERED: INSULIN GLARGINE [LANTus] (100 UNITS/ML) SYG SC (08:00)
== END 2019-01-08 23:07 | disposition home or self-care (01) | DRG 641 ==
LOC: MS3 20:12 → E/R 16:42
PROVIDERS: Internal Medicine
DX: E86.0 Dehydration (principal); F11.20 Opioid dependence, uncomplicated; N28.9 Disorder of kidney and ureter, unspecified; E87.2 Acidosis; I95.9 Hypotension, unspecified; E10.9 Type 1 diabetes mellitus without complications; F17.200 Nicotine dependence, unspecified, uncomplicated; I10 Essential (primary) hypertension; K29.70 Gastritis, unspecified, without bleeding; R91.8 Other nonspecific abnormal finding of lung field; Z79.4 Long term (current) use of insulin; Z91.14 Patient's other noncompliance with medication regimen
CPT/HCPCS: 36415; 71045; 71250; 80048; 80053; 80061; 81003; 82803; 82962; 83036; 83605; 83735; 84100; 84443; 84484; 85025; 93005; 93306; 93880; 99285-25